=== PATIENT | male | born 1940 | race Hispanic/Latino ===

== ENCOUNTER → 2022-06-04 | Outpatient (CLI) | payer OTHER, MEDICARE ==
[~2022-06-04] MED LIST: ACET-2079 PO; AEC81 PO; AMLO-257 PO; ATOR40TA69 PO; CALC667C10 PO; CLOP-31 PO; FERS325 PO; GABA-529 PO; INSU100I21 SQ; INSU100V42 SQ; METO-409 PO; MULT-685 PO; ONDA-104 PO; PENT400T72 PO; TRAZ-185 PO
[2022-06-04 13:18] LABS: ALBUMIN 3.1 g/dL (3.5-5.0); BILIRUBIN,DIRECT 0.1 mg/dL (0.0-0.3)
== END | disposition home or self-care (01) ==
LOC: LAB 08:43
PROVIDERS: ATTEND Internal Medicine Cardiovascular Disease
DX: I73.9 Peripheral vascular disease, unspecified (principal); E78.00 Pure hypercholesterolemia, unspecified; Z95.1 Presence of aortocoronary bypass graft
CPT/HCPCS: 36415; 80061; 80076

== ENCOUNTER → 2023-05-20 | Outpatient (CLI) | payer OTHER, MEDICARE ==
[~2023-05-20] MED LIST changes: -INSU100I21 SQ; +INSU100I22 SQ
[2023-05-20 12:33] LABS: BASOPHILS # (AUTO) 0.03 K/uL (0.00-0.20); BASOPHILS % (AUTO) 0.5 % (0.0-5.0); EOSINOPHILS # (AUTO) 0.11 K/uL (0.00-0.70); EOSINOPHILS % (AUTO) 1.7 % (0.0-8.0); IMMATURE GRANULOCYTE ABSOLUTE 0.02 K/uL (0-1); LYMPHOCYTES # (AUTO) 0.7 K/uL (1.0-4.8); LYMPHOCYTES % (AUTO) 11.2 % (21.0-51.0); MEAN CORPUSCULAR HEMOGLOBIN 31.7 pg (27.0-33.0); MEAN CORPUSCULAR HGB CONC 30.9 g/dL (32.0-36.0); MEAN CORPUSCULAR VOLUME 102.7 fL (79-99); MONOCYTES # (AUTO) 0.5 K/uL (0.1-1.0); MONOCYTES % (AUTO) 8.3 % (3.0-13.0); PLATELET COUNT (AUTO) 214 K/uL (130-400); RED BLOOD CELL COUNT(AUTO) 3.31 MIL/uL (4.50-6.20); RED CELL DISTRIBUTION WIDTH 19.7 % (11.0-15.5); WHITE BLOOD COUNT (AUTO) 6.4 K/uL (4.8-10.8)
== END | disposition home or self-care (01) ==
LOC: LAB 08:17
PROVIDERS: ATTEND Internal Medicine Cardiovascular Disease
DX: I73.9 Peripheral vascular disease, unspecified (principal); E11.59 Type 2 diabetes mellitus with other circulatory complications; I50.22 Chronic systolic (congestive) heart failure; Z99.2 Dependence on renal dialysis; Z79.899 Other long term (current) drug therapy
CPT/HCPCS: 36415; 85025